=== PATIENT | male | born 1990 | race African-American/Black ===

== ENCOUNTER 2016-10-15 22:23 | Emergency (ER) | payer BC ==
[~2016-10-15 22:23] MED LIST: AMOXICILLIN PO; BACTRIM DS TABL1 TA2 PO; BENTYL20 MG PO; CIPRO PO; IBUPROFEN800 MG PO; NO MEDICATIONS; PYRIDIUM PO; ZOFRAN ODT4 MG SL; ZOFRAN PO
== END 2016-10-15 23:38 | disposition home or self-care (01) ==
LOC: CFTX 22:23
DX: K52.9 Noninfective gastroenteritis and colitis, unspecified (principal); J45.909 Unspecified asthma, uncomplicated; F17.210 Nicotine dependence, cigarettes, uncomplicated
CPT/HCPCS: 99282; 99283